=== PATIENT | female | born 1945 | race Hispanic/Latino ===

== ENCOUNTER 2016-08-19 11:03 | Day surgery (SDC) | payer MEDICARE ==
[~2016-08-19 11:03] MED LIST: IOPIDINE ONE; MYDRIACYL ONE; NEOFRIN ONE
[2016-08-19] MEDS ORDERED: NEOFRIN OD ONE (12:40)
[2016-08-19] MEDS ORDERED: MYDRIACYL OD ONE (12:40)
[2016-08-19] MEDS ORDERED: IOPIDINE OD ONE (12:40)
[2016-08-19 13:14] VITALS: BP 122/84
== END 2016-08-19 13:21 | disposition home or self-care (01) ==
LOC: OR 11:03
PROVIDERS: ATTEND Specialist
DX: H26.491 Other secondary cataract, right eye (principal)